=== PATIENT | male | born 1945 | race Caucasian/White ===

== ENCOUNTER 2019-04-26 08:18 | Day surgery (SDC) | payer OTHER ==
[~2019-04-26] VITALS: Ht 170.2 cm; Wt 80.5 kg
[2019-04-26 08:54] VITALS: Ht 170.2 cm; Wt 80.5 kg
[2019-04-26] MEDS ORDERED: NAPROXEN (09:16)
[2019-04-26] MEDS ORDERED: SULFASALAZINE (09:16)
[2019-04-26] MEDS ORDERED: ASPIRIN (09:16)
[2019-04-26] MEDS ORDERED: AMLODIPINE (09:16)
[2019-04-26] MEDS ORDERED: VALSARTAN (09:16)
[2019-04-26] MEDS ORDERED: FLOMAX (09:16)
[2019-04-26] MEDS ORDERED: POTASSIUM (09:16)
--- NOTE | 2019-04-26 09:17 | PREAC ---
Date/Time of Note Date/Time of Note DATE: 04/26/19 TIME: 09:13 Anesthesia Eval and Record Evaluation Time Pre-Procedure Interview DATE: 04/26/19 TIME: 09:13 Age 73 Sex male NPO: 8 hrs Preoperative diagnosis dyspepcia Planned procedure EGD, Colonoscopy Past Medical History Past Medical History: Includes Cardio: HTN (METS >4, Denies CP/SOB), Dyslipidemia Pulm: Sleep Apnea (Probable) Musculoskeletal: Other (RLE Sciatica) Renal: BPH GI: Obesity Surgery & Anesthesia Issues No known issue Meds Anticoagulation: No Beta Martin within 24 hr: No Reason Beta Martin not given: Pt. not on B-Martin Meds reviewed: Yes Allergies Coded Allergies: No Known Allergy (Unverified , 04/26/19) Allergies Reviewed: Yes Labs/Studies Labs Reviewed: Other (None) test: N/A Pre-procedure Exam Airway: Adequate mouth opening, Adequate thyromental dist (Large, short neck) Mallampati: Mallampati III Teeth: Abnormal (loose teeth) Lung: Normal (decreased) Heart: Normal ASA Physical Status ASA physical status: 3 Emergency: None Planned Anesthetic General/MAC: MAC Pre-operative Attestations Prior to commencing anesthesia and surgery, the patient was re-evaluated, there was verification of: *The patient's identity *The results of appropriate recent lab work and preoperative vital signs *The above evaluation not changing prior to induction *Anesthetic plan, risk benefits, alternative and complications discussed with patient/family; questions answered; patient/family understands, accepts and wishes to proceed. [employer] Line [employer]airer used ([id number]) MUMTAZ WYNNE CRNA Apr 26, 2019 09:17
[2019-04-26 09:38] VITALS: BP 150/84; PULSE 78; RESP 12
[2019-04-26] MEDS ORDERED: PROPOFOL 40 ML ONE (10:01)
[2019-04-26] MEDS ORDERED: LIDOCAINE 2% (SDV) 5 ML INJ ONE (10:01)
--- NOTE | 2019-04-26 10:41 | PAC ---
Date/Time of Note Date/Time of Note DATE: 04/26/19 TIME: 10:40 Post-Anesthesia Notes Post-Anesthesia Note Last documented vital signs 100%, 61, 111/64, 15 Vital Signs Date Temp Pulse Resp B/P (MAP) Pulse Ox O2 O2 Flow FiO2 Time Delivery Rate 04/26/19 78 12 150/84 97 Room Air 09:38 (106) Activity: WNL Respiratory function: WNL Cardiovascular function: WNL Mental status: Baseline Pain reasonably controlled: Yes Hydration appropriate: Yes Nausea/Vomiting absent: Yes MUMTAZ WYNNE CRNA Apr 26, 2019 10:41
[2019-04-26] MEDS ORDERED: MEPERIDINE 25 MG INJ IV PRN (11:00)
[2019-04-26] MEDS ORDERED: FENTAnyl 50 MCG/ML VIAL IV PRN ×2 (11:00)
[2019-04-26] MEDS ORDERED: ONDANSETRON 4 MG INJ IV PRN (11:00)
[2019-04-26] MEDS ORDERED: LABETALOL HCL 20MG INJ IV PRN (11:00)
[2019-04-26] MEDS ORDERED: OXYCODONE/ACETAMINOPHEN (5/325) TAB PO PRN ×2 (11:00)
[2019-04-26 11:11] VITALS: BP 130/78; PULSE 66; RESP 12
== END 2019-04-26 14:14 | disposition home or self-care (01) ==
LOC: GIL 08:18
PROVIDERS: ATTEND Internal Medicine Gastroenterology
DX: Z12.11 Encounter for screening for malignant neoplasm of colon (principal); K57.30 Diverticulosis of large intestine without perforation or abscess without bleeding; K44.9 Diaphragmatic hernia without obstruction or gangrene; K29.50 Unspecified chronic gastritis without bleeding; I10 Essential (primary) hypertension
CPT/HCPCS: 88305; 88312